=== PATIENT | female | born 1985 | race Caucasian/White ===

== ENCOUNTER 2017-07-18 07:27 | Emergency (ER) | payer SELFPAY ==
[~2017-07-18] VITALS: Ht 170.2 cm; Wt 68.0 kg
[~2017-07-18 07:27] MED LIST: Z.0.NO CURRENT MEDS
[2017-07-18 07:56] VITALS: BP 115/64; PULSE 103; RESP 18; TEMP 98.9; O2SAT 97
[2017-07-18 07:58] VITALS: BP 115/64; PULSE 101; RESP 18; TEMP 98.9; O2SAT 97
[2017-07-18] MEDS ORDERED: BACT800T5 PO (08:36)
[2017-07-18] MEDS ORDERED: CEPH-460 PO (08:36)
[2017-07-18] MEDS ORDERED: CEPHALEXIN MONOHYDRATE 500 MG CAP PO ONE (08:45)
[2017-07-18] MEDS ORDERED: SULFAMETHOXAZOLE-TRIMETHOPRIM DS 800-160 MG TAB PO ONE (08:45)
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
[2017-07-18] MEDS ORDERED: DALBAVANCIN INJ 1,500 MG in DEXTROSE 5% IN WATE 500 ML INJ 500 ML IV STA ×2 (09:11)
[2017-07-18] MEDS ORDERED: ASP: Location of Dalbavancin administration OTHER ONE (09:15)
[2017-07-18] MEDS ORDERED: MISCELLANEOUS PHARMACY INFORMATION XX ONE (09:15)
[2017-07-18] MEDS ORDERED: ASP: Does not meet inpatient admission criteria OTHER ONE (09:15)
[2017-07-18] MEDS ORDERED: ASP: No known hypersensitivity to Vanco, Telavancin, Dalbavancin OTHER ONE (09:15)
--- NOTE | 2017-07-18 09:18 | PD ---
Physical Exam Date Seen by Provider: Jul 18, 2017 Time Seen by Provider: 09:05 Narrative Patient presented as a [employer]. However, on medical screening exam, she was noted to have several areas of erythema with induration on her upper extremities. On exam, she has several areas of erythema with induration on both upper extremities. None of the areas are fluctuant. This patient would be an ideal candidate for Dalvance. Data Data Last Documented VS Vital Signs Date Time Temp Pulse Resp B/P (MAP) Pulse Ox O2 Delivery O2 Flow Rate FiO2 07/18/17 07:58 98.9 101 18 115/64 (81) 97 Room Air Orders Orders Sulfamet-Trimeth Ds 800-160 Mg (Bactrim (07/18/17 08:45) Cephalexin (Keflex) (07/18/17 08:45) Diet Regular Basic (07/18/17 Breakfast) Complete Blood Count With Diff (07/18/17 09:11) Comprehensive Metabolic Panel (07/18/17 09:11) Consult Infectious Disease (07/18/17 ) Case Management Consult (07/18/17 ) Asp:No Reaction To Dal[place]av/Vanc (Asp Crit (07/18/17 09:15) Asp: Does Not Meet Inpt Admit (Asp Crit: (07/18/17 09:15) Asp: Location Of Dalbav Admin (Asp Crit: (07/18/17 09:15) [facility] Information ([facility] (07/18/17 09:15) Dalbavancin Inj (Dalvance Inj) (07/18/17 09:11) MDM Supervised Visit with VANESA: Yes Narrative Course I, Dr. Jimenes, have reviewed the advance practice practitioner's documentation and am in agreement, met with the patient face to face, made the diagnosis, and the medical decision making was done by me. *My assessment and Findings: Patient is sound asleep. She moves around when she is examined but does not wake up. Vital Signs Date Time Temp Pulse Resp B/P (MAP) Pulse Ox O2 Delivery O2 Flow Rate FiO2 07/18/17 07:58 98.9 101 18 115/64 (81) 97 Room Air 07/18/17 07:56 98.9 103 18 115/64 (81) 97 Both upper extremities have several areas of induration and erythema with no associated fluctuance. Dalvance protocol has been ordered. Please see Sandy Pierson NP's note for results of laboratory and radiographic evaluation, ED course, final diagnosis and disposition Diagnosis Primary Impression: Heroin abuse Additional Impressions: Cellulitis of left upper extremity Cellulitis of right upper extremity Cellulitis of right hand Referrals: [facility] Primary Care Physician Patient Instructions: General Instructions, Cellulitis (ED), Opioid Dependence (ED) Additional Instruction: Complete full course of antibiotics Warm compresses to the affected area Keep area clean and dry Ibuprofen or Tylenol as directed and as needed for pain and inflammation Stop using drugs Follow-up with primary care provider Follow-up with Tommie Liu/[facility] Return to the emergency department immediately with worsening of symptoms Scripts Sulfamethoxazole-Trimethoprim (Bactrim DS) 800-160 Mg Tab 1 TAB PO BID for Infection for 10 Days, #20 TAB 0 Refills Prov: Sandy Pierson 07/18/17 Cephalexin (Keflex) 500 Mg Cap 500 MG PO Q6H for Infection for 10 Days, #40 CAP 0 Refills Prov: Sandy Pierson 07/18/17 Disposition: 01 DISCHARGE HOME Condition: Stable Vani Jimenes MD Jul 18, 2017 09:18
[2017-07-18 11:01] LABS: AUTOMATED NEUTROPHIL # 9.4 TH/MM3 (1.8-7.7); BASOPHIL # 0.1 TH/MM3 (0-0.2); BASOPHIL % 0.7 % (0.0-2.0); EOSINOPHIL % 0.2 % (0.0-4.0); HEMOGLOBIN 9.7 GM/DL (11.6-15.3); LYMPH % 14.3 % (9.0-44.0); LYMPHOCYTE # 1.7 TH/MM3 (1.0-4.8); MEAN CELL VOLUME 80.4 FL (80.0-100.0); MEAN CORPUSCULAR HGB CONC 32.4 % (32.0-36.0); MEAN PLATELET VOLUME 8.4 FL (7.0-11.0); MONOCYTE # 0.8 TH/MM3 (0-0.9); NEUT % 77.8 % (16.0-70.0); PLATELET COUNT 275 TH/MM3 (150-450); RED BLOOD COUNT 3.73 MIL/MM3 (4.00-5.30); RED CELL DISTRIBUTION WIDTH 15.7 % (11.6-17.2); WHITE BLOOD COUNT 12.1 TH/MM3 (4.0-11.0)
[2017-07-18 11:18] LABS: ALBUMIN 2.8 GM/DL (3.4-5.0); ALT (GPT) 24 U/L (10-53); AST (GOT) 29 U/L (15-37); BICARBONATE 28.6 MEQ/L (21.0-32.0); BLOOD UREA NITROGEN 10 MG/DL (7-18); CALCIUM 8.4 MG/DL (8.5-10.1); CHLORIDE 102 MEQ/L (98-107); CREATININE 0.67 MG/DL (0.50-1.00); GLOMERULAR FILTRATION RATE 103 ML/MIN (>89); GLUCOSE,RANDOM 133 MG/DL (74-106); SODIUM (NA) 137 MEQ/L (136-145)
[2017-07-18 11:20] LABS: ALKALINE PHOSPHATASE 69 U/L (45-117); TOTAL BILIRUBIN ADULT 0.8 MG/DL (0.2-1.0); TOTAL PROTEIN 7.8 GM/DL (6.4-8.2)
[2017-07-18 12:48] VITALS: BP 102/55; PULSE 83; RESP 15; O2SAT 98
[2017-07-18 23:57] VITALS: BP 130/76
== END 2017-07-18 23:55 | disposition home or self-care (01) ==
LOC: NEPD 07:27 → NEDAMB 23:55
DX: F11.10 Opioid abuse, uncomplicated (principal); L03.113 Cellulitis of right upper limb; L03.114 Cellulitis of left upper limb; F17.210 Nicotine dependence, cigarettes, uncomplicated; F14.90 Cocaine use, unspecified, uncomplicated
CPT/HCPCS: 80053; 85025; 96365; 96366; 99284; J0875; J7060